=== PATIENT | female | born 1945 | race Caucasian/White ===

== ENCOUNTER → 2017-10-04 | Outpatient (CLI) | payer MEDICARE ==
--- NOTE | 2017-10-04 14:03 | MM ---
Reason for exam: additional evaluation requested from prior study. Last mammogram was performed 3 years and 3 months ago. History: Patient is postmenopausal. Family history of breast cancer in paternal aunt at age 40. Cancelled Left US Needle Biopsy of the left breast, October 27, 2010. Benign core biopsy of the right breast, August 11, 1998. Benign excisional biopsy of the left breast, 1995. Took hormonal contraceptives for 10 years beginning at age 50. Taking estrogen for 3 years 6 months beginning at age 63. Physical Findings: Nurse did not find any significant physical abnormalities on exam. MG 3D Diag Mammo W/Cad KARLEY Bilateral CC and MLO view(s) were taken. Prior study comparison: July 09, 2014, bilateral MG diagnostic mammo w CAD KARLEY. February 07, 2012, CAD bilateral diagnostic mammogram. Finding: There are indeterminate calcifications in the posterior position of the left breast, two groupes 10 and 12cm from the nipple. New finding since July 09, 2014 and February 07, 2012. ASSESSMENT: Suspicious, BI-RAD 4 RECOMMENDATION: Stereotactic core biopsy of the left breast. (x 2) Called Dr. Morton with mammographic findings and has scheduled an appointment for the patient for 10/19/17 at 9:[address] Medley. PRELIMINARY REPORT CALLED AND FAXED TO DR. MEDLEY ON 10/04/17.
== END | disposition home or self-care (01) ==
LOC: RADMAMWWP 12:35
PROVIDERS: ATTEND Family Medicine
DX: R92.8 Other abnormal and inconclusive findings on diagnostic imaging of breast (principal)
CPT/HCPCS: G0204; G0279

== ENCOUNTER → 2017-11-02 | Day surgery (SDC) | payer MEDICARE ==
--- NOTE | 2017-11-02 16:15 | MM ---
EXAMINATION TYPE: MG stereo VAD BX addl LT DATE OF EXAM: 11/02/2017 COMPARISON: Mammogram 11/02/2017 CLINICAL HISTORY: Abnormal mammogram TECHNIQUE: Stereotactic guided core biopsy of left breast. FINDINGS: The procedure of stereotactic guided core biopsy was explained to the patient. Benefits, alternatives, and risks were discussed. An informed consent was then obtained. A timeout was performed. The shortness pathway for biopsy was chosen. Shortness pathway was inferior approach. Radiology targeted the calcifications and performed the procedure. 2 separate areas were targeted, localized and biopsied. Separate set up was performed for each group of calcifications. Samples were separately labeled A posterior and B anterior. Mammograms of the specimen demonstrates calcifications targeted within the specimen. The patient tolerated the procedure well without any immediate complication. The patient was kept in the radiology department for short stay after the procedure and then discharged home in stable condition. Targeted calcifications are identified in specimen A and B on the mammogram. Post biopsy mammogram shows the clip to appear in satisfactory position relative to the targeted area of concern on the preprocedure images. Calcifications appear largely resected. IMPRESSION: 1. Successful stereotactic core biopsy A location posterior left breast calcifications. 2. Successful stereotactic core biopsy slightly more anterior B location calcifications Recommendations: 1. Recommendations are pending pathology results. Pathology Results: Benign A. BREAST, LEFT, SITE A, POSTERIOR, CORE BIOPSY: FIBROADENOMA WITH HYALINIZATION AND CALCIFICATIONS. BACKGROUND FIBROCYSTIC CHANGES. B. BREAST, LEFT, SITE B, ANTERIOR, CORE BIOPSY: FIBROADENOMA WITH HYALINIZATION AND CALCIFICATIONS. BACKGROUND FIBROCYSTIC CHANGES INCLUDING MILD USUAL TYPE DUCTAL HYPERPLASIA. Recommendation Follow up mammogram of the left breast in 6 months. DOLORES
[2017-11-02 16:40] VITALS: BP 148/74; PULSE 77; RESP 16; TEMP 97.8; BMI 42.0
== END ==
LOC: RADMAMWWP 13:14
PROVIDERS: ATTEND Surgery
DX: D24.2 Benign neoplasm of left breast (principal); N60.12 Diffuse cystic mastopathy of left breast; R92.1 Mammographic calcification found on diagnostic imaging of breast
CPT/HCPCS: 88305; 19081; 19082; A4648; J2001

== ENCOUNTER 2018-09-24 18:52 | Emergency (ER) | payer MEDICARE ==
[2018-09-24 19:23] VITALS: RESP 18
[2018-09-24] MEDS ORDERED: MORPHINE SULFATE 2 MG/ML SYRINGE IVP STA (21:01)
--- NOTE | 2018-09-24 21:26 | CT ---
EXAMINATION TYPE: CT brain stephanie davis DATE OF EXAM: 09/24/2018 COMPARISON: CT brain HISTORY: 03/29/2013 CT DLP: 1389.7 mGycm Automated exposure control for dose reduction was used. TECHNIQUE: CT scan of the head and cervical spine are performed without contrast. FINDINGS: Ventricles and sulci appear normal. There is no mass effect nor midline shift. There is n o sign of intracranial hemorrhage. There is degenerative disc space narrowing in the mid and lower ce rvical spine with spur formation. The skull base is intact. There is minimal facet arthropathy. The calvarium is intact. IMPRESSION: Negative CT scan of the brain. No acute intracranial abnormality. No change. degenerative disc changes in the cervical spine. No fracture seen.
--- NOTE | 2018-09-24 21:28 | XR ---
EXAMINATION TYPE: XR elbow limited LT DATE OF EXAM: 09/24/2018 COMPARISON: NONE HISTORY: Elbow pain TECHNIQUE: 2 views FINDINGS: I see no fracture nor dislocation. Joint spaces are normal. There is no sign of elbow joint effusion. IMPRESSION: Negative limited left elbow exam.
--- NOTE | 2018-09-24 21:30 | XR ---
EXAMINATION TYPE: XR humerus LT DATE OF EXAM: 09/24/2018 COMPARISON: NONE HISTORY: Pain at the shoulder after a fall TECHNIQUE: 3 views. FINDINGS: There is impacted comminuted humeral neck fracture. There is no dislocation. Scapula appears intact. IMPRESSION: Acute impacted comminuted humeral neck fracture.
--- NOTE | 2018-09-24 21:31 | XR ---
EXAMINATION TYPE: XR shoulder complete LT DATE OF EXAM: 09/24/2018 COMPARISON: NONE HISTORY: Shoulder pain TECHNIQUE: 3 views FINDINGS: There is impacted comminuted humeral neck fracture. There is no dislocation. IMPRESSION: Acute humeral neck impacted fracture.
[2018-09-24] MEDS ORDERED: HYDROmorphone 1 MG/ML 1 ML SYRINGE IVP STA (22:05)
--- NOTE | 2018-09-24 22:22 | ED ---
Upper Extremity HPI <Nate Hameed - Last Filed: 09/24/18 22:31> - General Source: patient Mode of arrival: ambulatory Limitations: no limitations <Evy Dean - Last Filed: 09/24/18 23:16> - General Chief Complaint: Extremity Injury, Upper Stated Complaint: left arm injury Time Seen by Provider: 09/24/18 19:49 - History of Present Illness Initial Comments: 73-year-old female presenting today for chief been a fall x 30 minutes ago. Patient states about 30 minutes prior to arrival, she was walking outside moving fast in the dark when she thinks she tripped over a lip on the cement falling forward on left outstretched hand. She hit the right side of her face and the cement, denies loss of consciousness. Patient did immediately noticed severe pain in her left arm, which she stated made her feel nauseous. Patient denies headache, dizziness, confusion, difficulty ambulating, pain in the wrist/ right upper extremity/hips/knees or hands bilaterally, ocular/nasal trauma, diplopia, pain with EAC, neck or back pain, abrasions or lacerations, or chest trauma. Patient denies vomiting. Patient was able to get up, and ambulate. Family denies any behavioral changes. Patient was concerned of fracture of the left shoulder and presented for evaluation. Patient denies any chest pain, dizziness, palpitations, shortness of breath, headache or any other symptoms prior to falling. She states that was mechanical, from tripping. Remainder of ROS negative, patient denies any recent fever, chills, back pain, abdominal pain, numbness or tingling, dysuria or hematuria, constipation or diarrhea, or visual changes, or any other complaints. Pt is on an anticoagulant. (Evy Dean) - Related Data Home Medications Medication Instructions Recorded Confirmed Bisoprolol-Hctz 10-6.25 mg [Ziac 1 each PO DAILY 10/20/17 11/02/17 10-6.25] Clopidogrel Bisulfate [Plavix] 75 mg PO DAILY 10/20/17 11/02/17 Ezetimibe [Zetia] 10 mg PO DAILY 10/20/17 11/02/17 Levothyroxine Sodium [Synthroid] 100 mcg PO DAILY 10/20/17 11/02/17 Omeprazole [PriLOSEC] 20 mg PO DAILY 10/20/17 11/02/17 Previous Rx's Medication Instructions Recorded traMADol HCL [Ultram] 50 mg PO Q6HR PRN 3 Days #12 tab 09/24/18 Allergies Allergy/AdvReac Type Severity Reaction Status Date / Time No Known Allergies Allergy Verified 09/24/18 19:23 Review of Systems ROS Other: All systems not noted in ROS Statement are negative. <Nate Hameed - Last Filed: 09/24/18 22:31> ROS Other: All systems not noted in ROS Statement are negative. Constitutional: Denies: fever, chills, night sweats Eyes: Denies: eye pain ENT: Denies: ear pain, throat pain Respiratory: Denies: cough, dyspnea, wheezes, hemoptysis, stridor Cardiovascular: Denies: chest pain, palpitations, dyspnea on exertion Endocrine: Denies: fatigue Gastrointestinal: Reports: nausea. Denies: abdominal pain, vomiting, diarrhea, constipation, hematemesis, melena, hematochezia Genitourinary: Denies: urgency, dysuria Musculoskeletal: Denies: back pain, joint swelling, arthralgia Skin: Denies: rash, lesions Neurological: Denies: headache, weakness, numbness, paresthesias, confusion, vertigo <Evy Dean - Last Filed: 09/24/18 23:16> ROS Statement: Those systems with pertinent positive or pertinent negative responses have been documented in the HPI. Past Medical History Past Medical History: CVA/TIA, Hyperlipidemia, Hypertension, Thyroid Disorder History of Any Multi-Drug Resistant Organisms: None Reported Past Surgical History: Hysterectomy Additional Past Surgical History / Comment(s): left needle [id number]. right breast [id number]. Past Anesthesia/Blood Transfusion Reactions: Previous Problems w/ Anesthesia, Postoperative Nausea & Vomiting (PONV) Additional Past Anesthesia/Blood Transfusion Reaction / Comment(s): pt states "difficultly waking up" Past Psychological History: No Psychological Hx Reported Smoking Status: Never smoker Past Alcohol Use History: None Reported Past Drug Use History: None Reported <Evy Dean - Last Filed: 09/24/18 23:16> General Exam <Nate Hameed - Last Filed: 09/24/18 22:31> Limitations: no limitations <Evy Dean - Last Filed: 09/24/18 23:16> - General Exam Comments Initial Comments: General: The patient is awake and alert, in no distress, and does not appear acutely ill. Eye: Pupils are equal, round and reactive to light, extra-ocular movements are intact. No nystagmus. There is normal conjunctiva bilaterally. No signs of icterus. Ears, nose, mouth and throat: There are moist mucous membranes and no oral lesions. Neck: The neck is supple, there is no tenderness or JVD. Cardiovascular: There is a regular rate and rhythm. No murmur, rub or gallop is appreciated. Respiratory: Lungs are clear to auscultation, respirations are non-labored, breath sounds are equal. No wheezes, stridor, rales, or rhonchi. Gastrointestinal: Soft, non-distended, non-tender abdomen without masses or organomegaly noted. There is no rebound or guarding present. Musculoskeletal: Upon inspection of the left shoulder there is no gross deformity no palpable step-off. Patient is unable to range at the left arm secondary to pain. There is no pain to palpation of the scapula. Pain is along the proximal humerus. Unable to test strength of shoulder , 5/5 strength at elbow and wrist of left upper extremity. Patient denies pain to palpation of the elbow, wrist, hand of the left upper extremity. Or right upper extremity. No pain to palpation of the hips with log roll. Patient is able to weight-bear. Full strength of the lower extremities equally bilaterally. No pain to palpation of the knees. Sensation intact of the upper and lower extremities equally bilaterally, there is no badge paresthesia/loss of sensation of the left upper extremity. Patient is able to make the okay, fingers crossed, thumbs up and extend at the wrist bilaterally. Ulnar, median and radial nerve appear intact. Radial pulses equal bilaterally 2+. Compartments are soft and compressible. Patient has no pedal patient of the cervical spine midline or paravertebral, she is able to fully range the C-spine with flexion, extension, lateral flexion and rotation. No pain to palpation along the thoracic and lumbar spine to palpation. Neurological: A&O x 3. CN II-XII intact, There are no obvious motor or sensory deficits. Coordination appears grossly intact. Speech is normal. Skin: Skin is warm and dry and no rashes or lesions are noted. Psychiatric: Cooperative, appropriate mood & affect, normal judgment. (Kinter,Evy L) Course <Nate Hameed - Last Filed: 09/24/18 22:31> <Evy Dean - Last Filed: 09/24/18 23:16> Vital Signs 09/24/18 19:19 Temperature 98.2 F Pulse Rate 80 Respiratory 18 Rate Blood Pressure 162/86 O2 Sat by Pulse 96 Oximetry - Reevaluation(s) Reevaluation #1: 09/24/18 22:31 PA supervision: I proceeded [id number] evaluation the patient did discuss findings with her and her family. Patient slipped while going out to the car waiting in her knees discussing her knees but also fell has a proximal humerus fracture. The case was discussed with orthopedics patient will be placed in a sling and discharged with outpatient follow-up. She has demonstrate tenderness over the proximal humerus on the left distally however there is no evidence of any neurovascular compromise. I do agree with the assessment and plan. (Nate Hameed) Reevaluation #2: Pain after morphine went form 10/10- 8/10 at rest. Mild itching at site of injection. 09/24/18 (Evy Dean) Reevaluation #3: 0.5 dilaudid given pt had nausea and vomiting. Pain 4/10. 09/24/18 (Evy Dean) Reevaluation #4: 1 episode of vomiting. Pt given zofran and sanwhich. Sling placed. 09/24/18 (Evy Dean) Medical Decision Making <Nate Hameed - Last Filed: 09/24/18 22:31> <Evy Dean - Last Filed: 09/24/18 23:16> - Medical Decision Making 73-year-old female with history of fall. On anticoagulants. Patient neurovascular intact. Exam concerning for humerus fracture given the location of pain. X-ray revealed a proximal humerus fracture impacted and comminuted. I called Dr. Rainey, the on-call orthopedic surgeon. He recommended sling and follow-up 1-2 days. Patient was given multiple IV analgesics for pain management, she did have nausea and vomiting following administration of Dilaudid. Patient will be discharged with prescription for tramadol for pain management, she is instructed to use ibuprofen as well for anti-inflammatory properties. Patient was placed in a sling. Patient was given instruction to follow-up with orthopedist surgery in the next 24-48 hours, she is aware that she needs to call to make the appointment. Repeat neurovascular exam unchanged from initial. CT of the brain and C-spine was negative for acute intracranial process or fracture of the cervical spine. This was obtained due to fall with facial contact, with patient on anticoagulant and history of nausea following fall. Patient has no focal neurological deficits on exam. She is ambulating without difficulty. This time patient is requesting discharge, patient was evaluated [id number] by Dr. Hameed who agrees with impression and plan. Patient be discharged with follow-up as discussed. Return parameters discussed at length, patient verbalizes understanding. Use of opioids was discussed at length as well with patient. I obtained opioids start talking sheet. Patient discharged in stable condition. (Evy Dean) Disposition <Nate Hameed - Last Filed: 09/24/18 22:31> Is patient prescribed a controlled substance at d/c from ED?: Yes When asked, does pt state using other controlled substances?: No If prescribed controlled substance>3 days was MAPS reviewed?: Prescribed <3 Days If opioid is for acute pain is fill amount 7 days or less?: Yes If Rx opioid, was Start Talking consent form obtained?: Yes Time of Disposition: 22:21 <Evy Dean - Last Filed: 09/24/18 23:16> Clinical Impression: Closed fracture of left proximal humerus, Fall Disposition: HOME SELF-CARE Condition: Good Instructions: Fall Prevention for Older Adults (ED), Proximal Humerus Fracture (ED) Additional Instructions: Please use medication as discussed. Please follow-up with orthopedic surgery in next [address] Rainey as discussed-please call to make your appointment. Please return to emergency room if the symptoms increase or worsen or for any other concerns, as discussed. Prescriptions: traMADol HCL [Ultram] 50 mg PO Q6HR PRN 3 Days #12 tab PRN Reason: Pain Referrals: Godwin Morton DO [Primary Care Provider] - 1-2 days Fabián Rainey MD [STAFF PHYSICIAN] - 1-2 days
[2018-09-24] MEDS ORDERED: traMADol 50 MG STARTER PACK 3 TAB BTL PO STA (22:31)
[2018-09-24] MEDS ORDERED: ONDANSETRON 4 MG/2 ML VIAL IVP STA (22:33)
[2018-09-24 23:18] VITALS: BP 148/80; PULSE 77; TEMP 98
== END 2018-09-24 23:18 | disposition home or self-care (01) ==
LOC: EC 18:52
DX: S42.202A Unspecified fracture of upper end of left humerus, initial encounter for closed fracture (principal); R11.2 Nausea with vomiting, unspecified; E78.5 Hyperlipidemia, unspecified; I10 Essential (primary) hypertension; E07.9 Disorder of thyroid, unspecified; Z86.73 Personal history of transient ischemic attack (TIA), and cerebral infarction without residual deficits; Z90.710 Acquired absence of both cervix and uterus; Z98.890 Other specified postprocedural states; Z79.02 Long term (current) use of antithrombotics/antiplatelets; Z79.899 Other long term (current) drug therapy; W01.10XA Fall on same level from slipping, tripping and stumbling with subsequent striking against unspecified object, initial encounter; Y92.009 Unspecified place in unspecified non-institutional (private) residence as the place of occurrence of the external cause; Y93.01 Activity, walking, marching and hiking
CPT/HCPCS: 73030; 73060; 73070; 72125; 70450; 99284; 96374; 96375 ×2; J2405; J2270; J1170

== ENCOUNTER → 2019-08-14 | Outpatient (CLI) | payer MEDICARE ==
--- NOTE | 2019-08-14 10:48 | MM ---
Reason for exam: additional evaluation requested from prior study. Last mammogram was performed 1 year and 10 months ago. History: Patient is postmenopausal. Family history of breast cancer in paternal aunt at age 40. Benign MG stereo VAD BX addl LT of the left breast, November 02, 2017. Benign MG stereo VAD BX LT of the left breast, November 02, 2017. Cancelled Left US Needle Biopsy of the left breast, October 27, 2010. Benign core biopsy of the right breast, August 11, 1998. Benign excisional biopsy of the left breast, 1995. Took hormonal contraceptives for 10 years beginning at age 50. Taking estrogen for 3 years 6 months beginning at age 63. Physical Findings: Nurse did not find any significant physical abnormalities on exam. MG 3D Diag Mammo W/Cad KARLEY Bilateral CC and MLO view(s) were taken. Prior study comparison: October 04, 2017, bilateral MG 3d diag mammo w/cad KARLEY. July 09, 2014, bilateral MG diagnostic mammo w CAD KARLEY. The breast tissue is heterogeneously dense. This may lower the sensitivity of mammography. Previous mammotome biopsy in the left breast x 2. No significant new findings when compared with previous films. These results were verbally communicated with the patient and result sheet given to the patient on 08/14/19. ASSESSMENT: Benign, BI-RAD 2 RECOMMENDATION: Routine screening mammogram of both breasts in 1 year.
== END | disposition home or self-care (01) ==
LOC: RADMAMWWP 09:08
PROVIDERS: ATTEND Family Medicine
DX: R92.8 Other abnormal and inconclusive findings on diagnostic imaging of breast (principal)
CPT/HCPCS: 77066; G0279; 77062

== ENCOUNTER → 2019-08-14 | Outpatient (CLI) | payer MEDICARE ==
--- NOTE | 2019-08-14 16:38 | BD ---
EXAMINATION TYPE: Axial Bone Density DATE OF EXAM: 08/14/2019 COMPARISON: NONE CLINICAL HISTORY: Height: 5 FT 3/4 IN Weight: 253 FRAX RISK QUESTIONS: History of Fracture in Adulthood: YES Secondary Osteoporosis: 3. Menopause before 45: UNSURE RISK FACTORS HISTORY OF: Active: NO Postmenopausal woman: SOMETIME IN HER 40'S Take estrogen and/or progesterone medications: TOOK HRT FOR OVER 10 YEARS NO LONGER TAKES Lost more than 2 inches in height since high school: YES MEDICATIONS: Thyroid Medications: YES Which medication: SYNTHROID How Lon YEARS Additional Medications: SYNTHROID, ZIAC, OMEPRAZOLE, CHOLESTEROL MEDS Additional History: EXAM MEASUREMENTS: Bone mineral densitometry was performed using the [employer] System. Bone mineral density as measured about the Lumbar spine is: ----- L1-L4(G/cm2): 1.572 T Score Values are as follows: ----- L2: 3.7 ----- L3: 3.8 ----- L4: 2.5 ----- L1-L4: 3.3 BASELINE Bone mineral density about the R hip (g/cm2): 1.109 Bone mineral density about the L hip (g/cm2): 1.130 T Score values are as follows: -----R Neck: 0.5 -----L Neck: 0.7 -----R Total: 1.5 -----L Total: 1.6 BASELINE IMPRESSION: Normal (Values between +1 and -1 indicate normal bone mass). Consider repeating this study in 5 year s or sooner if there is some new clinical indication. NOTE: T-SCORE=SD OF THE YOUNG ADULT MEAN.
== END | disposition home or self-care (01) ==
LOC: RADMAMWWP 08:21
PROVIDERS: ATTEND Family Medicine
DX: M81.0 Age-related osteoporosis without current pathological fracture (principal)
CPT/HCPCS: 77080

== ENCOUNTER → 2019-09-25 | Outpatient (CLI) | payer MEDICARE ==
[2019-09-25 16:34] LABS: Chol/HDL Ratio 4.8
== END | disposition home or self-care (01) ==
LOC: LABWHC1 09:37
PROVIDERS: ATTEND Nurse Practitioner Adult Health
DX: E78.2 Mixed hyperlipidemia (principal)
CPT/HCPCS: 36415; 80061; 84450; 84460

== ENCOUNTER → 2021-01-04 | Outpatient (CLI) | payer MEDICARE ==
--- NOTE | 2021-01-04 13:36 | XR ---
EXAMINATION TYPE: XR Hip Complete RT DATE OF EXAM: 01/04/2021 COMPARISON: NONE HISTORY: Pain TECHNIQUE: 2 views submitted FINDINGS: There is a arthropathy of the right hip. No acute fracture or dislocation. SI joint patent. Sacrum ap pear intact. IMPRESSION: 1. Moderate to severe hypertrophic arthropathy of the right hip correlate for femoral acetabular impi ngement.
--- NOTE | 2021-01-04 13:38 | XR ---
EXAM TYPE: LUMBAR SPINE X RAY SERIES COMPARISON: NONE HISTORY: Lower back pain TECHNIQUE: 4 views are submitted. FINDINGS: Alignment is anatomic. The pedicles are intact. The transverse processes are intact. There is no h ypertrophic and degenerative changes of the lumbar spine with multilevel facet arthropathy. Is a grad e 1 anterolisthesis of L4 on L5. Atherosclerotic change of the aorta. No compression deformities. IMPRESSION: 1. Multilevel degenerative disc disease and facet arthropathy with suspected multilevel foraminal enc roachment. Grade 1 anterolisthesis L4 on L5. Consider follow-up MRI.
== END | disposition home or self-care (01) ==
LOC: RADXRMAIN 13:09
PROVIDERS: ATTEND Family Medicine
DX: M51.36 Other intervertebral disc degeneration, lumbar region (principal); M47.816 Spondylosis without myelopathy or radiculopathy, lumbar region; M43.16 Spondylolisthesis, lumbar region; M12.851 Other specific arthropathies, not elsewhere classified, right hip
CPT/HCPCS: 72100; 73502

== ENCOUNTER → 2021-02-08 | Outpatient (CLI) | payer MEDICARE ==
--- NOTE | 2021-02-09 13:21 | MM ---
Reason for exam: additional evaluation requested from prior study. Last mammogram was performed 1 year and 6 months ago. History: Patient is postmenopausal. Family history of breast cancer in maternal cousin and breast cancer in paternal aunt at age 40. Benign MG stereo VAD BX addl LT of the left breast, November 02, 2017. Benign MG stereo VAD BX LT of the left breast, November 02, 2017. Cancelled Left US Needle Biopsy of the left breast, October 27, 2010. Benign core biopsy of the right breast, August 11, 1998. Benign excisional biopsy of the left breast, 1995. Took hormonal contraceptives for 10 years beginning at age 50. Took estrogen for 3 years 6 months beginning at age 63. Physical Findings: Nurse did not find any significant physical abnormalities on exam. MG 3D Diag Mammo W/Cad KARLEY Bilateral CC and MLO view(s) were taken. Prior study comparison: August 14, 2019, bilateral MG 3d diag mammo w/cad KARLEY. October 04, 2017, bilateral MG 3d diag mammo w/cad KARLEY. The breast tissue is heterogeneously dense. This may lower the sensitivity of mammography. There are benign appearing round calcifications bilaterally. Previous mammotome biopsy in the left breast x 2. There is chronic nodularity bilaterally. There is no discrete abnormality. These results were verbally communicated with the patient and result sheet given to the patient on 02/08/21. ASSESSMENT: Benign, BI-RAD 2 RECOMMENDATION: Surgical consultation of both breasts. (bilateral red nipples) Called Dr. Morton office with mammographic findings and has scheduled an appointment for the patient for 02/26/21 at 1:[address] Cosme. PRELIMINARY REPORT CALLED AND FAXED TO DR. COSME ON 02/09/21.
== END | disposition home or self-care (01) ==
LOC: RADMAMWWP 09:20
PROVIDERS: ATTEND Family Medicine
DX: R92.1 Mammographic calcification found on diagnostic imaging of breast (principal); Z78.0 Asymptomatic menopausal state; Z80.3 Family history of malignant neoplasm of breast
CPT/HCPCS: 77066; G0279; 77062

== ENCOUNTER → 2021-02-11 | Outpatient (CLI) | payer MEDICARE ==
--- NOTE | 2021-02-11 13:27 | P.GSHP ---
History of Present Illness H&P Date: 02/11/21 Chief Complaint: Bilateral nipple leaking/blistering in the areolar Alejandra is a 75-year-old white female seen in consultation for Dr. Godwin Morton regarding bilateral nipple discharge and crusting and blistering of the areolar complexes. She had a bilateral mammogram performed on this was felt to be benign BIRADS 2. Of importance is the fact that she underwent left breast stereotactic core biopsy of 2 sites in 2018. The posterior site was a fibroadenoma, and the anterior site was a fibroadenoma as well. She states for the past two months the nipples were tender. She then noted a crust around the area, and tried Neosporin and feels it has helped a little. It is not painful. She had started a new fabric softner. She has not used any new medications or soaps. There is moisture from the aerolar complex and is uncertain if this is from the nipple. She has noted itching of the breast. She is not complaining of any lumps masses or nodules in her breast. She has not had any recent trauma or infection in the past. Caffeine: none nicotine: none chocolate: 4 days a week Family history: mother: melanoma father: prostate maternal aunt: breast cancer maternal aunt (2): lung cancer Hormonal History; menarche: 14 , breast fed: no, age at first : 27 menopause: 51 BCP: 6 years hormones: 5 years, not using them now off them for 12 years Surgical History; Hysterectomy Tonsillectomy Tubal ligation Medical history: pinched nerve back arthritis HTN CVA 8 years ago, thinking slow at times Social History: smoke: none alcohol: none drugs: none - Constitutional Constitutional: Reports sweats, Denies chills, Denies fever - EENT Comment: cataracts starting Eyes: denies blurred vision, denies pain Ears: bilateral: tinnitus, deny: decreased hearing Ears, nose, mouth and throat: Reports headache, Denies sore throat - Breasts Breasts: bilateral: as per HPI - Cardiovascular Comment: has seen cardiology Cardiovascular: Reports chest pain, Denies shortness of breath - Respiratory Respiratory: Denies cough, Denies 7 - Gastrointestinal Gastrointestinal: Denies abdominal pain, Denies diarrhea, Denies nausea, Denies vomiting - Genitourinary (Female) Genitourinary: Denies dysuria, Denies hematuria - Menstruation Menstruation: Reports postmenopausal - Musculoskeletal Musculoskeletal: Reports as per HPI - Integumentary Integumentary: Reports as per HPI, Denies pruritus, Denies rash - Neurological Comment: CVA - Psychiatric Psychiatric: Denies anxiety, Denies depression - Endocrine Comment: hypothyroid - Hematologic/Lymphatic Comment: takes plavix - Allergic/Immunologic Allergic/Immunologic: Reports seasonal allergies Past Medical History Past Medical History: CVA/TIA, Hyperlipidemia, Hypertension, Thyroid Disorder History of Any Multi-Drug Resistant Organisms: None Reported Past Surgical History: Hysterectomy Additional Past Surgical History / Comment(s): left needle [id number]. right breast [id number]. Past Anesthesia/Blood Transfusion Reactions: Previous Problems w/ Anesthesia, Postoperative Nausea & Vomiting (PONV) Additional Past Anesthesia/Blood Transfusion Reaction / Comment(s): pt states "difficultly waking up" Past Psychological History: No Psychological Hx Reported Past Alcohol Use History: None Reported Past Drug Use History: None Reported Medications and Allergies Home Medications Medication Instructions Recorded Confirmed Type Bisoprolol-Hctz 10-6.25 mg [Ziac 1 each PO DAILY 10/20/17 11/02/17 History 10-6.25] Clopidogrel Bisulfate [Plavix] 75 mg PO DAILY 10/20/17 11/02/17 History Ezetimibe [Zetia] 10 mg PO DAILY 10/20/17 11/02/17 History Levothyroxine Sodium [Synthroid] 100 mcg PO DAILY 10/20/17 11/02/17 History Omeprazole [PriLOSEC] 20 mg PO DAILY 10/20/17 11/02/17 History traMADol HCL [Ultram] 50 mg PO Q6HR PRN 3 Days #12 tab 09/24/18 Rx Allergies Allergy/AdvReac Type Severity Reaction Status Date / Time No Known Allergies Allergy Verified 02/11/21 12:50 Surgical - Exam BMI 44.8 - General well developed, well nourished, no distress - Eyes normal ocular movement - Neck no masses, trachea midline - Respiratory normal expansion, normal respiratory effort, clear to auscultation - Cardiovascular Rhythm: regular Heart Sounds: normal: S1, S2 - Abdomen Abdomen: soft, non tender, no guarding, no rigid, no rebound - Neurologic no disoriented, no combative - Psychiatric oriented to time, oriented to person, oriented to place, speech is normal, memory intact breast exam: BRA: 44DD inspection: bilateral grade 3 ptosis palpation: right breast: Multi-positional exam no dominant masses or nodules of concern, fibrocystic changes, and the periareolar area there is marked erythema and liquid expressing from around the ducts of the nipple not coming directly from the nipple itself the area of erythema is approximately 2 cm in diameter and is more medial Right axilla: No adenopathy of concern Left breast: Multi-positional exam no dominant masses or nodules of concern, fibrocystic changes, periareolar area there is again marked erythema and liquid expressing from around the ducts of the nipple not coming directly from the nipple itself. The erythema is again approximately 2 cm in diameter Left axilla: No adenopathy of concern Results Mammogram results reviewed Assessment and Plan Assessment: Impression: 1. Bilateral nipple/areolar erythema with moisture in the periareolar area not directly coming from the nipple itself 2. Fibrocystic breast changes 3. Right breast slightly larger than left breast 4. History of CVA 5. History of hypertension 6. Patient did change laundry fabric softener prior to noting this and she has been using Neosporin and states it is getting somewhat better Plan: 1. Patient to be given chlotrimazole/betamethasone diproprionate 0.05%/1% 2. Schedule for a core biopsy of both areas to rule out Paget's disease 3. consider appointment with dermatology depending on biopsy results 4. avoid fabric softener Cc: Dr. Godwin Morton
[2021-02-11 13:33] VITALS: BP 167/87; PULSE 76; RESP 18; TEMP 98.2
== END ==
LOC: WWCWWP 12:02
PROVIDERS: ATTEND Surgery
DX: N60.11 Diffuse cystic mastopathy of right breast (principal); N60.12 Diffuse cystic mastopathy of left breast; I10 Essential (primary) hypertension; Z86.73 Personal history of transient ischemic attack (TIA), and cerebral infarction without residual deficits; E07.9 Disorder of thyroid, unspecified

== ENCOUNTER → 2021-03-11 | Outpatient (CLI) | payer MEDICARE ==
--- NOTE | 2021-03-11 09:27 | P.PCN ---
Date of Procedure: 03/11/21 Preoperative Diagnosis: Erythema/thickening of the skin around the periareolar region right and left nipple, improved after uses Lotrisone Postoperative Diagnosis: Same Anesthesia: local Surgeon: Dahlia Cosme Condition: stable Indications for Procedure: Erythema and thickening of the areolar skin bilaterally resolved largely on the left after use of Lotrisone decreased on the right after use of Lotrisone Description of Procedure: The area of concern in the right areolar was prepped using Betadine. 1% lidocaine was used to anesthetize the area of concern, 5 mL were used. A 4 mm punch biopsy was used to obtain a specimen. The opening was cauterized using silver nitrate. This was followed by a 4-0 nylon skin suture. The patient tolerated the procedure in stable condition. Evaluation of the left areolar skin showed marked improvement after the Lotrisone. It had appeared to be the same as that on the right and therefore after conversation with the patient she opted to postpone any biopsy on the left. The patient will follow up next week for results of the biopsy.
[2021-03-11 09:28] VITALS: BP 158/100; PULSE 78; RESP 18; TEMP 97.8
== END ==
LOC: WWCWWP 08:54
PROVIDERS: ATTEND Surgery
DX: N64.59 Other signs and symptoms in breast (principal)
CPT/HCPCS: 88305; 88312

== ENCOUNTER → 2021-03-18 | Outpatient (CLI) | payer MEDICARE ==
[2021-03-18 15:36] VITALS: BP 145/91; PULSE 77; RESP 18; TEMP 98
--- NOTE | 2021-03-18 15:51 | P.PN ---
Progress Note - Text Progress Note Date: 03/18/21 Alejandra is a 75-year-old white female status [place] [id number]. Biopsy revealed spongiotic dermatitis with parakeratotic neutrophilic crust, acute and chronic inflammation and dermal and focally intraepithelial eosinophilic inflammation. The patient is doing well at this time. She is responding to the steroid cream for which she is using. She will continue to do so and will follow up here for a bilateral mammogram in 1 year. Medical examination: Bilateral periareolar area much reduced inflammation The area of punch biopsy clean with minimal drainage suture to be removed Impression: Spongiotic dermatitis Plan: Continue present therapy if this does not heal completely in the next several weeks the patient will follow-up with dermatology Bilateral mammogram and examination here in one year
== END ==
LOC: WWCWWP 15:19
PROVIDERS: ATTEND Surgery
DX: L30.8 Other specified dermatitis (principal)

== ENCOUNTER → 2022-09-29 | Outpatient (CLI) | payer MEDICARE ==
[2022-09-29 22:09] LABS: ALT 9 U/L (8-44); AST 20 U/L (13-35); African American GFR (CKD) 78.4 (60.0-200.0); Albumin 4.2 g/dL (3.8-4.9); Albumin/Globulin Ratio 1.54 (1.60-3.17); Alkaline Phosphatase 72 U/L (41-126); BUN/Creat Ratio 18.59 Ratio (12.00-20.00); Blood Urea Nitrogen 15.6 mg/dL (9.0-27.0); Calcium 9.2 mg/dL (8.7-10.3); Carbon Dioxide 25.7 mmol/L (20.0-27.5); Chloride 103 mmol/L (96-109); Chol/HDL Ratio 5.02 Ratio; Globulin 2.7 g/dL (1.6-3.3); Glucose 122 mg/dL (70-110); LDL Cholesterol,Calculated 149.4 mg/dL (0.0-131.0); Non-African American GFR(CKD) 67.6 (60.0-200.0); Potassium 3.9 mmol/L (3.5-5.5); Sodium 142 mmol/L (135-145); Total Protein 6.9 g/dL (6.2-8.2)
== END | disposition home or self-care (01) ==
LOC: LABWHC1 13:17
PROVIDERS: ATTEND Internal Medicine Interventional Cardiology
DX: E78.2 Mixed hyperlipidemia (principal)
CPT/HCPCS: 36415; 80053; 80061

== ENCOUNTER → 2022-11-28 | Outpatient (CLI) | payer MEDICARE ==
[2022-11-28 23:27] LABS: Anion Gap 11.9 mmol/L (10.00-18.00); BUN/Creat Ratio 15.75 Ratio (12.00-20.00); Blood Urea Nitrogen 12.6 mg/dL (9.0-27.0); Calcium 9.7 mg/dL (8.7-10.3); Carbon Dioxide 27.1 mmol/L (20.0-27.5); Non-African American GFR(CKD) 71.6 (60.0-200.0); Potassium 4.4 mmol/L (3.5-5.5)
== END | disposition home or self-care (01) ==
LOC: LABWHC1 14:26
PROVIDERS: ATTEND Nurse Practitioner Adult Health
DX: I10 Essential (primary) hypertension (principal)
CPT/HCPCS: 36415; 80048

== ENCOUNTER → 2023-10-26 | Outpatient (CLI) | payer MEDICARE ==
[2023-10-26 18:47] LABS: Basophils # (A) 0.05 X 10*3/uL (0.00-0.10); Basophils % (A) 0.8 %; Eosinophils # (A) 0.29 X 10*3/uL (0.04-0.35); Eosinophils % (A) 4.6 %; HCT 25.9 % (37.2-46.3); HGB 8.1 g/dL (12.0-15.0); Lymphocytes # (A) 1.78 X 10*3/uL (0.90-5.00); MCH 29.2 pg (27.0-32.0); MCHC 31.3 g/dL (32.0-37.0); MCV 93.5 FL (80.0-97.0); Mean Platelet Volume 9.5 FL (9.5-12.2); Monocytes % (A) 15.7 %; NRBC Per 100 WBC 0 X 10*3/uL (0.00-0.01); Neutrophils # (A) 3.22 X 10*3/uL (1.80-7.70); Neutrophils % (A) 50.6 %; Platelet Count 308 X 10*3/uL (140-440); RBC 2.77 X 10*6/uL (4.10-5.20); RDW 14.3 % (11.5-14.5); WBC 6.36 X 10*3/uL (4.50-10.00)
[2023-10-26 18:58] LABS: % Iron Saturation 5.97 (12.00-45.00); Ferritin 46.7 ng/mL (10.0-291.0)
== END | disposition home or self-care (01) ==
LOC: LABWHC1 15:39
PROVIDERS: ATTEND Family Medicine
DX: K92.2 Gastrointestinal hemorrhage, unspecified (principal); D64.9 Anemia, unspecified
CPT/HCPCS: 36415; 82728; 83540; 83550; 85025

== ENCOUNTER → 2024-10-01 | Outpatient (CLI) | payer MEDICARE ==
[2024-10-01 15:12] LABS: ALT 14 U/L (8-44); AST 21 U/L (13-35); Albumin 4.1 g/dL (3.8-4.9); Albumin/Globulin Ratio 1.58 Ratio (1.60-3.17); Alkaline Phosphatase 89 U/L (41-126); BUN/Creat Ratio 20.75 Ratio (12.00-20.00); Blood Urea Nitrogen 16.6 mg/dL (9.0-27.0); Calcium 9.4 mg/dL (8.7-10.3); Carbon Dioxide 24.3 mmol/L (21.6-31.8); Chloride 105 mmol/L (96-109); Chol/HDL Ratio 5.75 Ratio; Globulin 2.6 g/dL (1.6-3.3); Glucose 176 mg/dL (70-110); LDL Cholesterol,Calculated 125.9 mg/dL (0.0-131.0); Potassium 4.1 mmol/L (3.5-5.5); Sodium 142 mmol/L (135-145); Total Bilirubin 0.3 mg/dL (0.3-1.2); Total Protein 6.7 g/dL (6.2-8.2)
== END | disposition home or self-care (01) ==
LOC: LABWHC1 11:27
PROVIDERS: ATTEND Internal Medicine Interventional Cardiology
DX: E78.2 Mixed hyperlipidemia (principal)
CPT/HCPCS: 36415; 80053; 80061

== ENCOUNTER 2025-03-10 13:19 | Emergency (ER) | payer MEDICARE ==
--- NOTE | 2025-03-10 13:24 | ED ---
General Adult HPI - General Stated complaint: head injury Time Seen by Provider: 03/10/25 13:21 Source: patient, EMS, RN notes reviewed Mode of arrival: EMS Limitations: no limitations - History of Present Illness Initial comments: Patient is a 79-year-old female present to the emergency department with fall. Patient fell just prior to arrival. Patient tripped and fell. Patient did land on the back of her head. Patient does have some discomfort of the back of her head. Patient states she may have some mild back discomfort however has chronic back problems. Patient is unclear whether or not she may have lost consciousness briefly. Patient denies any confusion. No speech problems. No weakness. Patient is on Plavix. - Related Data Home Medications Medication Instructions Recorded Confirmed Bisoprolol-Hctz 10-6.25 mg [Ziac 1 each PO DAILY 10/20/17 03/18/21 10-6.25] Clopidogrel Bisulfate [Plavix] 75 mg PO DAILY 10/20/17 03/18/21 Ezetimibe [Zetia] 10 mg PO DAILY 10/20/17 03/18/21 Levothyroxine Sodium [Synthroid] 100 mcg PO DAILY 10/20/17 03/18/21 Omeprazole [PriLOSEC] 20 mg PO DAILY 10/20/17 03/18/21 Allergies Allergy/AdvReac Type Severity Reaction Status Date / Time No Known Allergies Allergy Verified 03/10/25 13:34 Review of Systems ROS Statement: Those systems with pertinent positive or pertinent negative responses have been documented in the HPI. ROS Other: All systems not noted in ROS Statement are negative. Constitutional: Denies: fever Eyes: Denies: eye pain ENT: Denies: ear pain Respiratory: Denies: dyspnea Cardiovascular: Denies: chest pain Endocrine: Denies: fatigue Gastrointestinal: Denies: abdominal pain Musculoskeletal: Reports: as per HPI Neurological: Reports: as per HPI, headache. Denies: weakness, confusion Past Medical History Past Medical History: CVA/TIA, Hyperlipidemia, Hypertension, Thyroid Disorder History of Any Multi-Drug Resistant Organisms: None Reported Past Surgical History: Hysterectomy Additional Past Surgical History / Comment(s): left needle [id number]. right breast [id number]. Past Anesthesia/Blood Transfusion Reactions: Previous Problems w/ Anesthesia, Postoperative Nausea & Vomiting (PONV) Additional Past Anesthesia/Blood Transfusion Reaction / Comment(s): pt states "difficultly waking up" Past Psychological History: No Psychological Hx Reported Smoking Status: Never smoker Past Alcohol Use History: None Reported Past Drug Use History: None Reported General Exam Limitations: no limitations General appearance: alert, in no apparent distress Head exam: Present: other (Right posterior parietal soft tissue swelling with tenderness) Eye exam: Present: normal appearance, PERRL, EOMI ENT exam: Present: normal oropharynx Neck exam: Present: normal inspection. Absent: tenderness Respiratory exam: Present: normal lung sounds bilaterally. Absent: chest wall tenderness Cardiovascular Exam: Present: regular rate, normal rhythm GI/Abdominal exam: Present: soft. Absent: tenderness Extremities exam: Present: normal inspection, full ROM. Absent: tenderness, pedal edema, calf tenderness Back exam: Present: normal inspection. Absent: tenderness, CVA tenderness (R), CVA tenderness (L), paraspinal tenderness, vertebral tenderness Neurological exam: Present: alert, oriented X3, CN II-XII intact. Absent: motor sensory deficit Expanded Neurological exam: Present: protecting the airway Patient oriented to: Present: person, place, time Speech: Present: fluid speech Cranial nerves: EOM's Intact: Normal Sensory exam: Upper Extremity Light Touch: Normal, Lower Extremity Light Touch: Normal Motor strength exam: RUE: 5, LUE: 5, RLE: 5, LLE: 5 Eye Response: (4) open spontaneously Motor Response: (6) obeys commands Verbal Response: (5) oriented Psychiatric exam: Present: normal affect, normal mood Skin exam: Present: normal color Course Vital Signs 03/10/25 13:28 Temperature 98 F Pulse Rate 84 Respiratory 18 Rate Blood Pressure 172/70 O2 Sat by Pulse 98 Oximetry Medical Decision Making - Medical Decision Making Code coag was called prior to patient arrival Was pt. sent in by a medical professional or institution (, PA, ELECTRONICS TECH, urgent care, hospital, or longterm...) When possible be specific @ -No Did you speak to anyone other than the patient for history (EMS, parent, family, police, friend...)? What history was obtained from this source @ -EMS helps provide history including incident and patient on Plavix Did you review nursing and triage notes (agree or disagree)? Why? @ -I reviewed and agree with nursing and triage notes Were old charts reviewed (outside hosp., previous admission, EMS record, old EKG, old radiological studies, urgent care reports/EKG's, longterm records)? Report findings @ -No old charts were reviewed Differential Diagnosis (chest pain, altered mental status, abdominal pain women, abdominal pain men, vaginal bleeding, weakness, fever, dyspnea, syncope, headache, dizziness, GI bleed, back pain, seizure, CVA, palpatations, mental health, musculoskeletal)? @ -Differential Headache: Migraine, tension, cluster, carbon monoxide, central venous thrombosis, pension karma temporal arteritis, acute closure glaucoma, intercranial hemorrhage, mastoiditis, sinusitis, head injury, this is not meant to be an all-inclusive list. EKG interpreted by me (3pts min.). @ -As above X-rays interpreted by me (1pt min.). @ -None done CT interpreted by me (1pt min.). @ -CT cervical spine without fracture. CT brain with concern for posterior falx subdural hematoma U/S interpreted by me (1pt. min.). @ -None done What testing was considered but not performed or refused? (CT, X-rays, U/S, labs)? Why? @ -Chest x-ray ordered What meds were considered but not given or refused? Why? @ -None Did you discuss the management of the patient with other professionals (pro fessionals i.e. , PA, ELECTRONICS TECH, lab, RT, psych nurse, social security benefits interviewer, professional development director, teacher, air crew officer, director case management)? Give summary @ -Case discussed with radiologist including head CT results. Dr. mcarthur to accept transfer Was smoking cessation discussed for >3mins.? @ -No Was critical care preformed (if so, how long)? @ -31 minutes critical care time Were there social determinants of health that impacted care today? How? (Homelessness, low income, unemployed, alcoholism, drug addiction, transportation, low edu. Level, literacy, decrease access to med. care, long term, rehab)? @ -No Was there de-escalation of care discussed even if they declined (Discuss DNR or withdrawal of care, Hospice)? DNR status @ -No What co-morbidities impacted this encounter? (DM, HTN, Smoking, COPD, CAD, Cancer, CVA, ARF, Chemo, Hep., AIDS, mental health diagnosis, sleep apnea, morbid obesity)? @ -Patient on Plavix Was patient admitted / discharged? Hospital course, mention meds given and route, prescriptions, significant lab abnormalities, going to OR and other pertinent info. @ -Patient with fall on Plavix. Small subdural posterior hematoma. Patient be transferred to trauma facility with neurosurgical care. Patient reevaluated and updated. Undiagnosed new problem with uncertain prognosis? @ -No Drug Therapy requiring intensive monitoring for toxicity (Heparin, Nitro, Insulin, Cardizem)? @ -No Were any procedures done? @ -No Diagnosis/symptom? @ -Subdural hematoma Acute, or Chronic, or Acute on Chronic? @ -Acute Uncomplicated (without systemic symptoms) or Complicated (systemic symptoms)? @ -Default Side effects of treatment? @ -No Exacerbation, Progression, or Severe Exacerbation? @ -No Poses a threat to life or bodily function? How? (Chest pain, [place], [place], pneumonia, PE, COPD, DKA, ARF, appy, cholecystitis, CVA, Diverticulitis, Homicidal, Suicidal, threat to staff... and all critical care pts) @ -Threat to neurological function Disposition Clinical Impression: Fall, Subdural hematoma Disposition: OTHER INSTITUTION NOT DEFINED Is patient prescribed a controlled substance at d/c from ED?: No Referrals: Godwin Morton DO [Primary Care Provider] - 1-2 days Time of Disposition: 14:29 - Out of Hospital Transfer - Req. Specs Out of Hospital Transfer - Requested Specifics: Other Emergency Center
--- NOTE | 2025-03-10 13:57 | CT ---
EXAMINATION TYPE: CT brain cspine wo con CT DLP: 1684.6 mGycm, Automated exposure control for dose reduction was used. DATE OF EXAM: 03/10/2025 1:37 PM COMPARISON: CT brain C-spine 09/24/2018. CLINICAL INDICATION:Female, 79 years old with history of fall; CODE COAG, fall on thinners., pain TECHNIQUE: Brain: Multiple axial CT images of the brain were obtained without IV contrast. Cspine: Axial CT images from the skull base to the inferior aspect of T2 we obtained without intraven ous contrast. Coronal and sagittal reformatted images were also reviewed. FINDINGS: Brain: Extra-axial spaces: Acute hyperdensity along the left posterior falx measuring up to 3 mm in thicknes s. Ventricular system: Within normal limits Cerebral parenchyma: No acute intraparenchymal hemorrhage or mass effect. The cardoza-white junction is well differentiated. Scattered hypoattenuating areas are seen within the periventricular white matte r. Cerebellum: Unremarkable. Mass effect: No evidence of midline shift. Intracranial vasculature: Atherosclerotic calcifications of the intracranial vessels. Soft tissues: Moderate size right posterior scalp hematoma measuring up to 1.6 cm in thickness. Calvarium/osseous structures: No depressed skull fracture. Benign hyperostosis frontalis noted. Paranasal sinuses and mastoid air cells: Clear. Visualized orbits: Right aphakia Cervical spine: Fracture: None. Osseous structures: Multilevel degenerative disc disease changes with endplate spurring and osteophyt osis. Vertebral alignment: Within normal limits. Spinal canal/Neural Foramina: Disc osteophyte complexes at C4-C5, C5-C6, and C6-C7 with at least mild spinal canal stenosis. Facet joint uncovertebral joint arthropathy scattered throughout the cervical spine with varying degrees of neural foraminal stenosis. Neck soft tissues: Prevertebral soft tissues are within normal limits. Other: The airway is patent. The lung apices are clear. Bilateral carotid bulb calcifications. IMPRESSION: 1. Acute posterior falx minimal subdural hematoma. 2. Nonspecific white matter changes, likely secondary to chronic small vessel ischemic disease. 3. Acute moderate size right posterior scalp hematoma. 4. No evidence of cervical spine fracture. 5. Mild to moderate multilevel degenerative disc disease. Findings communicated to Dr. Igor Crowder DO on 03/10/2025 1:[address] Wili Simms . [facility], , 03/10/2025 1:54 PM
[2025-03-10 14:41] VITALS: PULSE 85
[2025-03-10 14:46] LABS: Basophils # (A) 0.06 10*3/uL (0.00-0.10); Basophils % (A) 0.7 %; Eosinophils # (A) 0.17 10*3/uL (0.04-0.35); Eosinophils % (A) 1.9 %; HCT 38.3 % (37.2-46.3); HGB 13.1 g/dL (12.0-15.0); Lymphocytes # (A) 1.06 10*3/uL (0.90-5.00); Lymphocytes % (A) 11.6 %; MCH 31.1 pg (27.0-32.0); MCHC 34.2 g/dL (32.0-37.0); Mean Platelet Volume 9.9 fL (9.5-12.2); Monocytes # (A) 1.26 10*3/uL (0.20-1.00); Monocytes % (A) 13.8 %; Neutrophils # (A) 6.53 10*3/uL (1.80-7.70); Neutrophils % (A) 71.6 %; Platelet Count 190 10*3/uL (140-440); RBC 4.21 10*6/uL (4.10-5.20); RDW 13.3 % (11.5-14.5); WBC 9.12 10*3/uL (4.50-10.00)
[2025-03-10 15:00] LABS: ALT 15 U/L (4-34); AST 23 U/L (14-36); African American GFR (CKD) >90 (>60 ml/min/1.73 sqM); Albumin 4.2 g/dL (3.5-5.0); Alkaline Phosphatase 76 U/L (38-126); Anion Gap 10 mmol/L; Blood Urea Nitrogen 13 mg/dL (7-17); Calcium 9.4 mg/dL (8.4-10.2); Carbon Dioxide 30 mmol/L (22-30); Chloride 100 mmol/L (98-107); Glucose 252 mg/dL (74-99); Non-African American GFR(CKD) 84 (>60 ml/min/1.73 sqM); Potassium 3.8 mmol/L (3.5-5.1); Sodium 140 mmol/L (137-145); Total Bilirubin 0.3 mg/dL (0.2-1.3); Total Protein 7.2 g/dL (6.3-8.2)
--- NOTE | 2025-03-10 15:03 | XR ---
EXAMINATION TYPE: XR chest 1V portable DATE OF EXAM: 03/10/2025 2:37 PM COMPARISON: Chest radiographs from 03/29/2013 CLINICAL INDICATION: Female, 79 years old with history of fall; pain TECHNIQUE: XR chest 1V portable Frontal view of the chest. FINDINGS: Lungs/Pleura: There is no evidence of pleural effusion, focal consolidation, or pneumothorax. Pulmonary vascularity: Unremarkable. Heart/mediastinum: Cardiomediastinal silhouette is unremarkable. Musculoskeletal: No acute osseous pathology. IMPRESSION: No acute cardiopulmonary disease/process. [facility], , 03/10/2025 3:01 PM
[2025-03-10 15:04] LABS: INR 0.9 (<1.2); Partial Thromboplastin Time 25.5 sec (22.0-30.0); Prothrombin Time 10.5 sec (10.0-12.5)
[2025-03-10] MEDS: ONDANSETRON 4 MG/2 ML VIAL IVP STA (15:05)
[2025-03-10] MEDS: MORPHINE SULFATE 2 MG/ML SYRINGE IVP STA (15:06)
[2025-03-10 15:20] VITALS: BP 179/83; RESP 16; TEMP 98.3
== END 2025-03-10 15:26 | disposition other institution (70) ==
LOC: EC 13:19
DX: S06.5XAA Traumatic subdural hemorrhage with loss of consciousness status unknown, initial encounter (principal); W01.0XXA Fall on same level from slipping, tripping and stumbling without subsequent striking against object, initial encounter
CPT/HCPCS: 99291; 96374; 96375; 36415; 80053; 85025; 85610; 85730; 71045; 72125; 70450; J2405; J2270

== ENCOUNTER → 2025-05-20 | Outpatient (CLI) | payer MEDICARE ==
--- NOTE | 2025-05-20 10:40 | CT ---
EXAMINATION TYPE: CT brain wo con DATE OF EXAM: 05/20/2025 10:32 AM COMPARISON: 03/10/2025 CLINICAL INDICATION: Female, 79 years old with history of [id number] TRAUM SUBDR HEM W/O LOSS OF CONSCIO USNESS,, recent head/ brain injury x 1month ago TECHNIQUE: CT of the brain is performed utilizing 3 mm thick sections through the posterior fossa and 3 mm thick sections through the remaining calvarium. Study is performed within 24 hours of arrival to the hospital. Contrast used: mL of , (none if empty) CT DLP: 1153 mGycm, Automated exposure control for dose reduction was used. FINDINGS: No abnormal hyperdensity is present to suggest an acute intracranial hemorrhage. No mass lesion is evident. No acute infarcts are evident. Ventricles and sulci are appropriate for the patient age. Paranasal sinuses and mastoid air cells within the [id number] are clear. IMPRESSION: 1. No acute intracranial process. Follow up MRI can be performed as clinically indicated. [facility], Workstation: [email or web address], 05/20/2025 10:37 AM
== END | disposition home or self-care (01) ==
LOC: RADCTMAIN 10:07
PROVIDERS: ATTEND Neurological Surgery
DX: S06.5X0D Traumatic subdural hemorrhage without loss of consciousness, subsequent encounter (principal)
CPT/HCPCS: 70450